=== PATIENT | female | born 1940 | race Caucasian/White ===

== ENCOUNTER 2017-04-03 09:40 | Inpatient (IN) ==
[2017-04-03 10:58] LABS: Basophils % 0.4 % (0.0-0.8); Eosinophils % 0.8 % (0.00-10.9); Hematocrit 41.2 VOL% (35.7-47.0); Hemoglobin 13.5 GM/DL (12.0-16.0); Immature Granulocytes % 0.4 %; Immature Granulocytes Absolute 0.02 #; Lymphocytes # 0.9 10*3/uL (1.4-4.0); Lymphocytes % 19.4 % (21.3-54.2); Mean Corpuscular HGB Conc 32.8 GM/DL (32-36); Mean Corpuscular Hemoglobin 29 PG (27-34); Mean Corpuscular Volume 88.2 FL (87-102); Mean Platelet Volume 9.9 FL (9.6-12.0); Monocytes # 0.4 10*3/uL (0.11-0.8); Monocytes % 8.3 % (1.7-12.7); Neutrophils # 3.4 10*3/uL (1.4-7.4); Neutrophils % 70.7 % (38.7-73.9); Platelet Count 216 T/CUMM (130-400); Red Blood Count 4.67 MC/CUMM (3.8-5.5); Red Cell Distribution Width 14.1 % (9.3-17.3); White Blood Count 4.8 T/CUMM (4-12)
[2017-04-03 11:09] LABS: PT Patient Result 10.9 SECS; Partial Thromboplastin Time 26.7 SECS (0-40)
[2017-04-03 11:41] LABS: Alanine Aminotransferase 21 U/L (13-56); Albumin 3.3 G/DL (3.4-5.0); Alkaline Phosphatase 67 U/L (45-117); Aspartate Amino Transferase 13 U/L (0-37); Bilirubin,Total < 0.39 MG/DL (0.2-1.0); Blood Urea Nitrogen 14 MG/DL (7-18); Calcium 8.4 MG/DL (8.5-10.1); Glucose 93 MG/DL (74-106); Osmolality,Calculated 283.1 MOS/KG (273-304); Potassium 3.9 MMOL/L (3.5-5.1); Sodium 142 MMOL/L (136-145); Total Protein 5.8 G/DL (6.4-8.3)
[2017-04-03] MEDS ORDERED: ONDANSETRON 4 MG/2 ML VIAL IV PRN (14:35)
[2017-04-03] MEDS ORDERED: GLUCAGON 1 MG VIAL IM PRN (14:38)
[2017-04-03] MEDS ORDERED: DEXTROSE 50% 25 GM/50 ML VIAL IV PRN (14:38)
[2017-04-03] MEDS ORDERED: POLYETHYLENE GLYCOL POWDER 17 GM PACK PO PRN (16:11)
[2017-04-03] MEDS: SODIUM CHLORIDE 0.9% 1,000 ML IV SCH (17:29)
[2017-04-03] MEDS ORDERED: INFLUENZA VIRUS VACCINE 0.5 ML SYRINGE IM ONE (17:30)
[2017-04-03] MEDS: LOSARTAN 50 MG TABLET PO SCH (20:25)
[2017-04-03] MEDS: traZODone 50 MG TABLET PO SCH (21:45)
[2017-04-03] MEDS: ALPRAZolam 0.5 MG TABLET PO SCH (21:45)
[2017-04-04] MEDS: SODIUM CHLORIDE 0.9% 1,000 ML IV SCH ×3 (02:20→23:13)
[2017-04-04] MEDS: LEVOTHYROXINE 50 MCG TABLET PO SCH (06:14)
[2017-04-04 06:39] LABS: Basophils % 0.7 % (0.0-0.8); Eosinophils # 0.1 10*3/uL (0.0-0.87); Eosinophils % 2.9 % (0.00-10.9); Hematocrit 38.2 VOL% (35.7-47.0); Hemoglobin 12.3 GM/DL (12.0-16.0); Immature Granulocytes % 0.5 %; Immature Granulocytes Absolute 0.02 #; Lymphocytes # 1.6 10*3/uL (1.4-4.0); Lymphocytes % 38.8 % (21.3-54.2); Mean Corpuscular HGB Conc 32.2 GM/DL (32-36); Mean Corpuscular Hemoglobin 29 PG (27-34); Mean Corpuscular Volume 89.5 FL (87-102); Mean Platelet Volume 10.4 FL (9.6-12.0); Monocytes # 0.4 10*3/uL (0.11-0.8); Monocytes % 9.5 % (1.7-12.7); Neutrophils % 47.6 % (38.7-73.9); Platelet Count 202 T/CUMM (130-400); Red Blood Count 4.27 MC/CUMM (3.8-5.5); Red Cell Distribution Width 14.3 % (9.3-17.3); White Blood Count 4.1 T/CUMM (4-12)
[2017-04-04 07:15] LABS: Bilirubin,Total 0.6 MG/DL (0.2-1.0); Calcium 8.1 MG/DL (8.5-10.1); Osmolality,Calculated 291.4 MOS/KG (273-304); Potassium 4.2 MMOL/L (3.5-5.1); Total Protein 5.3 G/DL (6.4-8.3)
[2017-04-04 07:19] LABS: Risk Ratio 3.66; VLDL CHOLESTEROL 11.8 MG/DL
[2017-04-04] MEDS: PANTOPRAZOLE 40 MG VIAL IV SCH (08:29)
[2017-04-04] MEDS: LOSARTAN 50 MG TABLET PO SCH ×2 (08:29→20:49)
[2017-04-04] MEDS: ALPRAZolam 0.5 MG TABLET PO SCH ×2 (08:30→20:49)
[2017-04-04] MEDS: ATENOLOL 25 MG TABLET PO SCH (08:30)
[2017-04-04] MEDS: CITALOPRAM 20 MG TABLET PO SCH (08:30)
[2017-04-04] MEDS: ISOSORBIDE MONONITRATE 30 MG TABLET PO SCH (08:30)
[2017-04-04] MEDS ORDERED: LACTULOSE 20 GM/30 ML UDCUP PO PRN (12:32)
[2017-04-04 15:53] LABS: Hematocrit 40.3 VOL% (35.7-47.0); Hemoglobin 12.9 GM/DL (12.0-16.0)
[2017-04-04] MEDS: traZODone 50 MG TABLET PO SCH (22:18)
[2017-04-05] MEDS: LEVOTHYROXINE 50 MCG TABLET PO SCH (06:00)
[2017-04-05 07:19] LABS: Hematocrit 37.7 VOL% (35.7-47.0); Hemoglobin 12.3 GM/DL (12.0-16.0)
[2017-04-05] MEDS: SODIUM CHLORIDE 0.9% 1,000 ML IV SCH (07:30)
[2017-04-05] MEDS: LOSARTAN 50 MG TABLET PO SCH (08:53)
[2017-04-05] MEDS: PANTOPRAZOLE 40 MG VIAL IV SCH (08:54)
[2017-04-05] MEDS: ISOSORBIDE MONONITRATE 30 MG TABLET PO SCH (08:54)
[2017-04-05] MEDS: CITALOPRAM 20 MG TABLET PO SCH (08:54)
[2017-04-05] MEDS: ALPRAZolam 0.5 MG TABLET PO SCH (08:54)
[2017-04-05] MEDS: ATENOLOL 25 MG TABLET PO SCH (08:54)
[2017-04-05 09:29] VITALS: BP 162/93
== END 2017-04-05 10:57 | disposition home or self-care (01) | DRG 379 ==
LOC: N.ED 09:40 → N.EDINP 13:14 → SUATTDRO 13:14 → N.EDINP 16:22 → N.5E 16:53
PROVIDERS: ADMIT Internal Medicine; ATTEND Internal Medicine Infectious Disease

== ENCOUNTER 2019-11-24 07:45 | Inpatient (IN) ==
[2019-11-24] MEDS ORDERED: ONDANSETRON 4 MG/2 ML VIAL IV PRN ×2 (08:31→13:29)
[2019-11-24] MEDS: LACTATED RINGERS 1,000 ML IV SCH ×3 (08:40→20:53)
[2019-11-24] MEDS ORDERED: LIDOCAINE 2% 5 ML VIAL ONE (09:00)
[2019-11-24] MEDS ORDERED: propofoL 200 MG/20 ML VIAL IV ONE (09:00)
[2019-11-24] MEDS ORDERED: GLYCOPYRROLATE 0.4 MG/2 ML VIAL ONE (09:00)
[2019-11-24] MEDS ORDERED: PHENYLEPHRINE 1 MG/10 ML SYRINGE IV ONE (09:00)
[2019-11-24] MEDS ORDERED: metroNIDAZOLE INJ 500 MG in PREMIX 1 EACH IV STA (12:56)
[2019-11-24] MEDS: CIPROFLOXACIN INJ 400 MG in PREMIX 1 EACH IV SCH (14:42)
[2019-11-24 15:05] LABS: Alanine Aminotransferase 14 U/L (13-56); Albumin 3.3 G/DL (3.4-5.0); Alkaline Phosphatase 73 U/L (45-117); Aspartate Amino Transferase 12 U/L (0-37); Bilirubin,Total < 0.39 MG/DL (0.2-1.0); Blood Urea Nitrogen 8 MG/DL (7-18); Calcium 8.6 MG/DL (8.5-10.1); Estimated Glom Filtration Rate 91 ML/MIN; Glucose 92 MG/DL (74-106); Osmolality,Calculated 278.3 MOS/KG (273-304); Total Protein 6.7 G/DL (6.4-8.3)
[2019-11-24 15:11] LABS: Basophils % 0.6 % (0.0-0.8); Eosinophils % 0.6 % (0.00-10.9); Hematocrit 39.3 VOL% (35.7-47.0); Hemoglobin 12.1 GM/DL (12.0-16.0); Immature Granulocytes % 0.3 %; Immature Granulocytes Absolute 0.02 #; Lymphocytes # 1.2 10*3/uL (1.4-4.0); Lymphocytes % 18.4 % (21.3-54.2); Mean Corpuscular HGB Conc 30.8 GM/DL (32-36); Mean Corpuscular Volume 87.5 FL (87-102); Mean Platelet Volume 9.8 FL (9.6-12.0); Monocytes % 9.5 % (1.7-12.7); Neutrophils % 70.6 % (38.7-73.9); Platelet Count 264 T/CUMM (130-400); Red Blood Count 4.49 MC/CUMM (3.8-5.5); Red Cell Distribution Width 14.6 % (9.3-17.3); White Blood Count 6.4 T/CUMM (4-12)
[2019-11-24] MEDS ORDERED: ALBUTEROL 2.5 MG/3 ML NEB RESP TX PRN (19:00)
[2019-11-24] MEDS: ALPRAZolam 0.5 MG TABLET PO SCH (20:50)
[2019-11-25] MEDS: CIPROFLOXACIN INJ 400 MG in PREMIX 1 EACH IV SCH ×2 (01:30→13:16)
[2019-11-25] MEDS: LACTATED RINGERS 1,000 ML IV SCH ×2 (05:32→14:48)
[2019-11-25 06:18] LABS: Bilirubin,Total 0.5 MG/DL (0.2-1.0); Calcium 8.1 MG/DL (8.5-10.1); Total Protein 6.4 G/DL (6.4-8.3)
[2019-11-25] MEDS: ALPRAZolam 0.5 MG TABLET PO SCH (07:58)
[2019-11-25] MEDS ORDERED: NON-FORMULARY MEDICATION (Biotin 1,000 MCG) PO SCH (10:45)
[2019-11-25] MEDS ORDERED: PANTOPRAZOLE 40 MG TABLET PO SCH (10:45)
[2019-11-25] MEDS ORDERED: LOSARTAN 50 MG TABLET PO SCH (10:45)
[2019-11-25] MEDS ORDERED: CYANOCOBALAMIN 500 MCG TABLET PO SCH (10:45)
[2019-11-25] MEDS ORDERED: MELOXICAM 7.5 MG TABLET PO SCH (10:45)
[2019-11-25] MEDS ORDERED: ISOSORBIDE MONONITRATE 30 MG TABLET PO SCH (11:00)
[2019-11-25] MEDS ORDERED: CALCIUM (CARBONATE) 600 MG TABLET PO SCH (11:00)
[2019-11-25] MEDS ORDERED: CITALOPRAM 20 MG TABLET PO SCH (11:00)
[2019-11-25] MEDS ORDERED: atenoloL 25 MG TABLET PO SCH (11:00)
[2019-11-25] MEDS ORDERED: ASPIRIN EC 81 MG TABLET PO SCH (11:00)
[2019-11-25] MEDS ORDERED: FUROSEMIDE 40 MG TABLET PO SCH (11:00)
[2019-11-25 11:27] VITALS: BP 156/77
[2019-11-25] MEDS ORDERED: MUPIROCIN 2% OINT 22 GM TUBE TOP SCH (15:00)
[2019-11-25] MEDS ORDERED: metroNIDAZOLE 250 MG TABLET PO SCH (15:00)
[2019-11-25] MEDS ORDERED: POTASSIUM CHLORIDE 10 MEQ TABLET PO SCH (17:00)
[2019-11-25] MEDS ORDERED: ALPRAZolam 0.5 MG TABLET PO SCH (17:00)
[2019-11-25] MEDS ORDERED: CIPROFLOXACIN 500 MG TABLET PO SCH (21:00)
[2019-11-25] MEDS ORDERED: traZODone 50 MG TABLET PO SCH (21:00)
[2019-11-26] MEDS ORDERED: LEVOTHYROXINE 50 MCG TABLET PO SCH (06:30)
[2019-11-26] MEDS ORDERED: amLODIPine 5 MG TABLET PO SCH (09:00)
== END 2019-11-25 13:50 | disposition home or self-care (01) | DRG 394 ==
LOC: N.GILAB 07:45 → N.3E 13:29 → UNDODEPREF 11-25 22:44
PROVIDERS: ADMIT Internal Medicine Gastroenterology; ATTEND Internal Medicine Gastroenterology